=== PATIENT | male | born 1990 | race Hispanic/Latino ===

== ENCOUNTER 2019-11-14 18:37 | Emergency (ER) | payer BC, SELFPAY ==
[2019-11-14 19:20] LABS: #Monocytes 0.7 thou/uL (0.11-0.59); #Neutrophils 12.5 thou/uL (1.40-6.50); %Basophils 0.2 % (0.0-1.0); %Eosinophils 0.1 % (0.0-10.0); %Lymphocytes 12.9 % (21.0-51.0); %Monocytes 4.5 % (0.0-10.0); %Neutrophils 82.4 % (42.0-75.0); Hemoglobin 15.9 g/dL (14.0-18.0); Mean Corpuscular HGB CONC 33.1 g/dL (32.0-36.0); Mean Corpuscular Hemoglobin 33.1 pg (27.0-31.0); Mean Platelet Volume 7.3 fL (7.4-10.4); Platelet Count 299 thou/uL (130-400); RBC Distribution Width 12.1 % (11.5-14.5); Red Blood Cell (RBC) Count 4.79 mill/uL (4.70-6.10); White Blood Cell (WBC) Count 15.2 thou/uL (4.8-10.8)
[2019-11-14 19:42] LABS: Acetaminophen Less than 6.0 mcg/mL (10.0-30.0); Alcohol Less than 10 mg/dL (Less than 10); Salicylate Less than 8.0 mg/dL (15.0-30.0)
[2019-11-14 19:43] LABS: ALT (SGPT) 17 U/L (8-55); AST (SGOT) 13 U/L (5-34); Albumin 4.9 g/dL (3.5-5.0); Alkaline Phosphatase 84 U/L (40-110); Anion Gap 14 mmol/L (10-20); BUN (Urea Nitrogen) 8 mg/dL (8.9-20.6); Bilirubin, Total 0.5 mg/dL (0.2-1.2); CK (CPK) 94 U/L (30-200); Calc. Creatinine Clearance 0 mL/min (70-130); Calcium 9.6 mg/dL (7.8-10.44); Carbon Dioxide 23 mmol/L (22-29); Chloride 103 mmol/L (98-107); Estimated GFR-MDRD Greater than 90; Globulin 2.5 g/dL (2.4-3.5); Glucose 110 mg/dL (70-105); Potassium 3.8 mmol/L (3.5-5.1); Protein, Total 7.4 g/dL (6.0-8.3); Sodium 136 mmol/L (136-145)
[2019-11-14 19:56] LABS: Bilirubin Negative (Negative); Blood, Urine Negative (Negative); Clarity Clear (Clear); Glucose, Urine (Dipstick) Normal (Negative); Leukocyte Negative Leu/uL (Negative); Nitrite Negative (Negative); Protein, Urine (Dipstick) Negative (Neg-Trace); Urobilinogen Normal mg/dL (Less than 2)
[2019-11-14 20:10] LABS: Amphetamine Detected (NotDetected); Barbiturates Screen Not Detected (NotDetected); Benzodiazepine Screen Detected (NotDetected); Cocaine Metabolite Screen Not Detected (NotDetected); Medtox Control Line Valid? VALID (VALID); Medtox Reader # READER 1; Methadone Not Detected (NotDetected); Methamphetamine Not Detected (NotDetected); Opiate Screen Not Detected (NotDetected); Oxycodone Screen Not Detected (NotDetected); Phencyclidine (PCP) Not Detected (NotDetected); THC/Cannabinoid Screen Detected (NotDetected); Tricyclic Screen Not Detected (NotDetected)
[2019-11-14] MEDS ORDERED: Lorazepam 2 MG/ML VIAL ONE (22:19)
[2019-11-15] MEDS ORDERED: hydrOXYzine 25 MG TAB ONE (10:02)
[2019-11-15] MEDS ORDERED: Ziprasidone 20 MG CAP ONE (11:55)
[2019-11-15] MEDS ORDERED: Lorazepam 2 MG/ML VIAL ONE (14:52)
[2019-11-15] MEDS ORDERED: Haloperidol Lactate 5 MG/ML VIAL ONE (15:09)
--- NOTE | 2019-11-15 17:29 | CT ---
CT OF BRAIN WITHOUT CONTRAST: 11/15/19 COMPARISON: None. HISTORY: Altered mental status with possible drug overdose. TECHNIQUE: Multiple contiguous axial images were obtained in a CT of the brain without contrast. FINDINGS: The brain is normal in morphology and attenuation without focal lesions or confluent areas of infarct ion. There is no evidence of hydrocephalus, intracranial hemorrhage or extra-axial fluid collections. The calvarium and overlying soft tissues are unremarkable. The visualized paranasal sinuses and masto id air cells are well aerated. IMPRESSION: No evidence of acute intracranial abnormality. POS: CET
== END 2019-11-15 20:02 | disposition home or self-care (01) ==
LOC: ERS 18:37
DX: F43.20 Adjustment disorder, unspecified (principal); F13.10 Sedative, hypnotic or anxiolytic abuse, uncomplicated
CPT/HCPCS: 36415; 70450; 80053; 80306; 80307; 81003; 82550; 85025; 93005; 96361; 96372; 96374; J1630; J2060

== ENCOUNTER 2019-11-16 13:16 | Inpatient (IN) | payer SELFPAY ==
[2019-11-16] MEDS ORDERED: Lorazepam 2 MG/ML VIAL ONE ×3 (13:53→18:14)
[2019-11-16 13:59] LABS: #Basophils 0.1 thou/uL (0.0-0.2); #Lymphocytes 2.4 thou/uL (1.20-3.40); #Monocytes 0.9 thou/uL (0.11-0.59); #Neutrophils 14.7 thou/uL (1.40-6.50); %Basophils 0.4 % (0.0-1.0); %Eosinophils 0.2 % (0.0-10.0); %Lymphocytes 13.2 % (21.0-51.0); %Monocytes 5.2 % (0.0-10.0); Hemoglobin 17.3 g/dL (14.0-18.0); Mean Corpuscular HGB CONC 33.3 g/dL (32.0-36.0); Mean Corpuscular Hemoglobin 33.5 pg (27.0-31.0); Mean Platelet Volume 7.8 fL (7.4-10.4); Platelet Count 356 thou/uL (130-400); RBC Distribution Width 12.1 % (11.5-14.5); Red Blood Cell (RBC) Count 5.16 mill/uL (4.70-6.10); White Blood Cell (WBC) Count 18.2 thou/uL (4.8-10.8)
[2019-11-16 14:21] LABS: ALT (SGPT) 31 U/L (8-55); AST (SGOT) 31 U/L (5-34); Albumin 5.5 g/dL (3.5-5.0); Alkaline Phosphatase 100 U/L (40-110); Anion Gap 27 mmol/L (10-20); BUN (Urea Nitrogen) 13 mg/dL (8.9-20.6); Bilirubin, Total 0.6 mg/dL (0.2-1.2); CK (CPK) 985 U/L (30-200); Calc. Creatinine Clearance 0 mL/min (70-130); Calcium 10.6 mg/dL (7.8-10.44); Carbon Dioxide 15 mmol/L (22-29); Chloride 107 mmol/L (98-107); Estimated GFR-MDRD 61; Globulin 3.2 g/dL (2.4-3.5); Glucose 137 mg/dL (70-105); Potassium 4.9 mmol/L (3.5-5.1); Protein, Total 8.7 g/dL (6.0-8.3); Sodium 144 mmol/L (136-145)
[2019-11-16 15:31] LABS: Acetaminophen Less than 6.0 mcg/mL (10.0-30.0); Alcohol Less than 10 mg/dL (Less than 10); Salicylate Less than 8.0 mg/dL (15.0-30.0)
[2019-11-16 15:53] LABS: Bacteria/HPF None Seen HPF (None Seen); Bilirubin Negative (Negative); Blood, Urine Negative (Negative); Clarity Clear (Clear); Glucose, Urine (Dipstick) Normal (Negative); Leukocyte Negative Leu/uL (Negative); Nitrite Negative (Negative); Protein, Urine (Dipstick) 30 mg/dL (Neg-Trace); RBC/HPF 0-3 HPF (0-3); Squamous Epithelial 0-3 HPF (0-3); Urobilinogen Normal mg/dL (Less than 2)
[2019-11-16 16:00] LABS: Amphetamine Detected (NotDetected); Barbiturates Screen Not Detected (NotDetected); Benzodiazepine Screen Detected (NotDetected); Cocaine Metabolite Screen Not Detected (NotDetected); Medtox Control Line Valid? VALID (VALID); Medtox Reader # READER 1; Methadone Not Detected (NotDetected); Methamphetamine Not Detected (NotDetected); Opiate Screen Not Detected (NotDetected); Oxycodone Screen Not Detected (NotDetected); Phencyclidine (PCP) Not Detected (NotDetected); THC/Cannabinoid Screen Detected (NotDetected); Tricyclic Screen Not Detected (NotDetected)
[2019-11-16] MEDS ORDERED: Ondansetron ODT 4 MG TAB SL PRN (19:55)
[2019-11-16] MEDS ORDERED: Acetaminophen 325 MG TAB PO PRN (19:55)
[2019-11-16] MEDS ORDERED: Ondansetron PF 4 MG/2 ML Vial IVP PRN ×2 (19:55→21:46)
[2019-11-16] MEDS ORDERED: Lorazepam 2 MG/ML VIAL SLOW IVP SCH (20:00)
[2019-11-16 20:15] VITALS: BMI 30.1
[2019-11-16] MEDS ORDERED: Lorazepam 2 MG/ML VIAL SLOW IVP PRN (21:20)
[2019-11-16] MEDS ORDERED: Sodium Chloride 0.9% 1,000 ML IV SCH (21:30)
[2019-11-16] MEDS ORDERED: cloNIDine 0.1 MG TAB PO PRN (21:46)
[2019-11-16] MEDS ORDERED: Acetaminophen 500 MG TAB PO PRN (21:46)
[2019-11-16] MEDS ORDERED: Ondansetron ODT 4 MG TAB PO PRN (21:46)
[2019-11-16] MEDS: Lorazepam 2 MG/ML VIAL SLOW IVP SCH (21:55)
[2019-11-16] MEDS: Sodium Chloride 0.9% 1,000 ML IV SCH (21:56)
[2019-11-16] MEDS: Ketorolac Tromethamine 30 MG/ML VIAL IVP SCH (23:34)
--- NOTE | 2019-11-17 00:37 | HP ---
PRIMARY CARE PROVIDER: Hoang Ku. CHIEF COMPLAINT: Altered mental status, question of seizure. HISTORY OF PRESENT ILLNESS: This is a 29-year-old male, who initially presented to [facility] Emergency Department on 11/14/2018, for altered mental status, difficulty ambulating and seizure-like activity. The patient was treated with multiple medications to include Zyprexa, trazodone, Risperdal, Haldol, Ativan, Geodon, hydroxyzine, intravenous normal saline and transdermal nicotine during that 11/14/2019 evaluation. The patient states that he developed confusion, difficulty walking, and rigidity while working at his place of employment. The patient admits to daily marijuana use as well as methamphetamines and was attempting to discontinue the use of these drugs in preparation for seeking new employment. The patient states he was unable to complete his regular job duties, acting confused, staring blankly with some tongue movements and acting erratic. The patient underwent extensive evaluation on 11/14/[address] of the brain showing no acute process. The patient received the medications described previously and was discharged home with plans for [facility] evaluation on 11/16/2019. The father who accompanies his son states they went to [facility] for followup; however patient began acting confused, was rigid, sweating and appeared to have seizure-like activity. The patient was also noting visual hallucinations. The [facility] staff recommended the patient seek medical attention in the emergency room at which point the patient presented for 2nd evaluation on 11/16/2019. The patient underwent CT imaging of the brain showing no acute process and metabolic screening, which showed evidence of acute kidney injury as well as rhabdomyolysis. Urine drug screen was positive for amphetamines, benzodiazepines and cannabinoids. The patient received IV fluids in addition to Ativan 3 mg total and was transferred to the Hospitalist Service for evaluation. PAST MEDICAL HISTORY: 1. Polysubstance abuse. 2. Anxiety/depression. PAST SURGICAL HISTORY: Reviewed and negative. CURRENT MEDICATION: Ativan 0.5 mg p.o. q.8 hours p.r.n. ALLERGIES: NO KNOWN DRUG ALLERGIES. FAMILY HISTORY: No inheritable diseases per patient report. SOCIAL HISTORY: He smokes up to a quarter pack of cigarettes daily. Daily marijuana use. Positive benzodiazepine use. Resides in [place], [place]. Accompanied by his parents in the hospital. REVIEW OF SYSTEMS: CONSTITUTIONAL: Negative for weight loss or gain, ability to conduct usual activities. SKIN: Negative for rash, itching. EYES: Negative for double vision, pain. ENT/MOUTH: Negative for nose bleeding, neck stiffness, pain, tenderness. CARDIOVASCULAR: Negative for palpitations, dyspnea on exertion, orthopnea. RESPIRATORY: Negative for shortness of breath, wheezing, cough, hemoptysis, fever or night sweats. GASTROINTESTINAL: Negative for poor appetite, abdominal pain, heartburn, nausea, vomiting, constipation, or diarrhea. GENITOURINARY: Negative for urgency, frequency, dysuria, nocturia. MUSCULOSKELETAL: Negative for pain, swelling. NEUROLOGIC/PSYCHIATRIC: Negative for anxiety, depression. ALLERGY/IMMUNOLOGIC: Negative for skin rash, bleeding tendency. Otherwise negative except as stated per HPI. PHYSICAL EXAMINATION: VITAL SIGNS: On admission, blood pressure 135/106, pulse 136, respiratory rate 42, temperature 102.8 degrees Fahrenheit rectally. GENERAL APPEARANCE: This is a 29-year-old male, sitting in the hospital bed, alert responds to questions by nodding and stating several word sentences in mild distress. HEENT: Pupils are equal, round, reactive to light and accommodation. Extraocular muscles are intact. No scleral icterus. Mild conjunctival injection. Nares patent. OP is clear. Oral mucosa moist. Tongue fasciculations noted. NECK: Supple. No cervical adenopathy. No thyromegaly. No carotid bruits. No JVD appreciated. Cervical spine with full active and passive range of motion. No meningeal signs noted. CHEST: Lungs are clear to auscultation bilaterally. CARDIOVASCULAR: S1-S2 with tachycardia. ABDOMEN: Rounded, soft, nontender, and nondistended. Bowel sounds are positive in all 4 quadrants. There is no hepatosplenomegaly. No abdominal bruits, no rebound or guarding appreciated. EXTREMITIES: Warm and dry with fair turgor. No asymmetric edema appreciated. Pulses palpable distally at the dorsalis pedis, posterior tibial, and popliteal arteries bilaterally. Capillary refill less than 2 seconds. NEUROLOGIC: Staring blankly intermittently. Tongue fasciculations noted. Intermittent rigidity, hyperreflexia. PERTINENT LABORATORY AND X-RAY FINDINGS: Sodium 144, potassium 4.9, chloride 107, CO2 of 15, BUN 13, creatinine 1.36, estimated GFR of 61, glucose 137, calcium 10.6. LFTs within normal limits. Total CK of 985. Albumin 5.5. TSH 1.26. CBC showed a white blood cell count of 18.2, hemoglobin 17, hematocrit 52, MCV 100, platelet count 356 with 81% neutrophils. Urinalysis positive for protein and 4-6 wbc's per high-power field. Urine drug screen dated 11/16/2019 positive for amphetamines, benzodiazepines and cannabinoids. Plasma alcohol level less than 10. Influenza A and B antigen dated 11/16/[address] of the brain without contrast dated 11/15/2019 showed no acute intracranial process. Telemetry monitoring shows sinus tachycardia with heart rates in the low 110s. ASSESSMENT AND PLAN: 1. Neuroleptic malignant syndrome. The patient will be admitted to the intermediate care unit. We will continue Ativan 1 mg IV q.2 hours scheduled. Continue IV fluids with normal saline 125 mL/hour. Continue general supportive management. Consider the use of dantrolene, if temperature remains elevated. Cooling ice packs as needed. Avoid all other antipsychotic medications. 2. Rhabdomyolysis with acute kidney injury. We will continue IV fluids as outlined previously. Avoid nephrotoxic agents. Limit contrast exposure. Total CK in the a.m. 3. Polysubstance abuse. [facility] evaluation for outpatient followup when clinically stabilizing. 4. Tobacco abuse. We will offer smoking cessation resources prior to discharge. 5. Prophylaxis. Sequential compression devices while in bed. Pepcid 20 mg IV q.12 hours. [facility] evaluation when clinically stabilizing. CODE STATUS: Full. Surrogate medical decision maker is the patient's father. Job ID: [id number]
[2019-11-17] MEDS: Lorazepam 2 MG/ML VIAL SLOW IVP SCH ×12 (01:35→22:48)
[2019-11-17 04:07] LABS: Eosinophils 2 % (0-10); Hemoglobin 14.2 g/dL (14.0-18.0); Lymphocytes 24 % (21-51); MDiff Complete? YES; Mean Corpuscular HGB CONC 33.4 g/dL (32.0-36.0); Mean Corpuscular Hemoglobin 33.4 pg (27.0-31.0); Mean Platelet Volume 7.6 fL (7.4-10.4); Monocytes 4 % (0-10); Neutrophil 66 % (42-75); Platelet Count 253 thou/uL (130-400); Platelet Morphology Comment Appears Adequate; Reactive Lymphocytes 4 % (0-10); Red Blood Cell (RBC) Count 4.25 mill/uL (4.70-6.10)
[2019-11-17 04:16] LABS: ALT (SGPT) 29 U/L (8-55); AST (SGOT) 37 U/L (5-34); Albumin 4.3 g/dL (3.5-5.0); Alkaline Phosphatase 77 U/L (40-110); Anion Gap 12 mmol/L (10-20); BUN (Urea Nitrogen) 11 mg/dL (8.9-20.6); Bilirubin, Total 0.9 mg/dL (0.2-1.2); CK (CPK) 1356 U/L (30-200); Calc. Creatinine Clearance 187 mL/min (70-130); Calcium 8.8 mg/dL (7.8-10.44); Carbon Dioxide 22 mmol/L (22-29); Chloride 111 mmol/L (98-107); Estimated GFR-MDRD Greater than 90; Globulin 2.4 g/dL (2.4-3.5); Glucose 97 mg/dL (70-105); Potassium 3.8 mmol/L (3.5-5.1); Protein, Total 6.7 g/dL (6.0-8.3); Sodium 141 mmol/L (136-145)
[2019-11-17] MEDS: Ketorolac Tromethamine 30 MG/ML VIAL IVP SCH ×3 (05:32→17:27)
[2019-11-17] MEDS: Sodium Chloride 0.9% 1,000 ML IV SCH ×3 (05:36→22:41)
[2019-11-17] MEDS: Famotidine/PF 20 mg/2ml Vial SLOW IVP SCH ×2 (10:26→21:00)
--- NOTE | 2019-11-17 13:13 | PDOC.HOSPP ---
- Subjective Encounter Date: 11/17/19 Encounter Time: 13:11 Subjective: Mr. Aguirre was seen today in follow-up. He appears back to his baseline. Family is at the bedside. - Objective Vital Signs & Weight: Vital Signs (12 hours) Temp Pulse Ox 11/17/19 09:00 98.5 F 11/17/19 08:00 99 11/17/19 03:00 98.4 F 11/17/19 02:46 97 Weight Weight 204 lb 2 oz Most Recent Monitor Data Heart Rate from ECG 103 NIBP 108/86 NIBP BP-Mean 93 Respiration from ECG 20 SpO2 100 I&O: 11/16/19 11/17/19 11/18/19 06:59 06:59 06:59 Intake Total 717 Output Total 400 200 Balance 317 -200 Result Diagrams: 11/17/19 03:38 11/17/19 03:38 Hospitalist ROS - Medication Medications: Active Medications Generic Name Dose Route Start Last Admin Trade Name Freq PRN Reason Stop Dose Admin Famotidine 20 mg 11/17/19 09:00 11/17/19 10:26 Pepcid SLOW IVP 20 mg Q12HR JHON Administration Sodium Chloride 1,000 mls @ 125 mls/hr 11/16/19 21:46 11/17/19 05:36 Normal Saline 0.9% IV 1,000 mls .Q8H JHON Administration Ketorolac Tromethamine 15 mg 11/16/19 23:59 11/17/19 11:52 Toradol IVP 11/21/19 23:59 15 mg Q6HR JHON Administration Lorazepam 1 mg 11/16/19 22:00 11/17/19 11:53 Ativan SLOW IVP Not Given Q2HR JHON - Exam Eye: PERRL Heart: RRR, no gallops, no rubs, normal peripheral pulses, II/IV Respiratory: CTAB, no wheezes, no rales, no ronchi Gastrointestinal: soft, non-tender, non-distended, normal bowel sounds, no palpable masses, no hepatomegaly Extremities: no cyanosis, no edema Hosp A/P (1) Neuroleptic malignant syndrome Code(s): G21.0 - MALIGNANT NEUROLEPTIC SYNDROME Status: Acute (2) Rhabdomyolysis Code(s): M62.82 - RHABDOMYOLYSIS Status: Acute (3) Altered mental status Code(s): R41.82 - ALTERED MENTAL STATUS, UNSPECIFIED Status: Acute (4) Polysubstance abuse Code(s): F19.10 - OTHER PSYCHOACTIVE SUBSTANCE ABUSE, UNCOMPLICATED Status: Acute - Plan * Neuroleptic Malignant Syndrome- improved * Rhabdomyolysis- continue IV hydration, and will continue to trend to CK levels * Murmur noted on exam- will check an Echo * I suspect the original altered mental status was due to substance abuse- will check an MRI to rule out structural Abnormality * He can be moved out of the ICU
--- NOTE | 2019-11-17 16:52 | CON ---
DATE OF CONSULTATION: 11/17/2019 REASON FOR CONSULTATION: ICU management. HISTORY OF PRESENT ILLNESS: This is a 29-year-old male, who presented to the emergency room yesterday with rigors versus seizure-type activity. He had elevated CK. He also had fever, so it was assumed that he could have neuroleptic malignant syndrome. He does have a history of schizophrenia, to take several antipsychotic medications. PAST MEDICAL HISTORY: 1. Schizophrenia. 2. Substance abuse. 3. Anxiety/depression. PAST SURGICAL HISTORY: None. MEDICATIONS: Prior to admission; 1. Zyprexa. 2. Trazodone. 3. Risperidone. 4. Haldol. 5. Ativan. 6. Geodon. 7. Hydroxyzine. 8. Transdermal nicotine. ALLERGIES: NONE. FAMILY MEDICAL HISTORY: Unremarkable. SOCIAL HISTORY: He smokes a quarter pack of cigarettes a day. He uses marijuana. REVIEW OF SYSTEMS: Remarkable for body aches. Rigor-type activity in his extremities, otherwise negative. PHYSICAL EXAMINATION: VITAL SIGNS: Temperature 98.4, pulse 75, blood pressure 137/78, and O2 saturation 99%. GENERAL: He is awake, alert, and in no distress. HEENT: Unremarkable. NECK: No adenopathy or JVD. LUNGS: Clear anteriorly. CARDIAC: S1 and S2. Regular. ABDOMEN: Soft and nontender. EXTREMITIES: No clubbing, cyanosis, or edema. NEUROLOGIC: Nonfocal. LABORATORY DATA: Sodium 141, potassium 3.8, chloride 111, CO2 of 22, BUN 11, creatinine 0.7, and glucose 97. CPK is 1356. White blood cell count 13, hematocrit 42.6, and platelet count 253. I do not see a prolactin level. ASSESSMENT: 1. Neuroleptic malignant syndrome versus seizure activity versus rhabdomyolysis. The elevated CK could be seen with any of those three situations. 2. Substance abuse. PLAN: IV fluids, stop the antipsychotics and monitor CK levels closely. The patient apparently has transfer orders to the [facility]. Agree with current management. No further recommendations at this time. Job ID: [id number]
[2019-11-18] MEDS: Ketorolac Tromethamine 30 MG/ML VIAL IVP SCH ×4 (00:23→18:33)
[2019-11-18] MEDS: Lorazepam 2 MG/ML VIAL SLOW IVP SCH ×5 (00:26→09:01)
[2019-11-18 04:05] LABS: Anion Gap 9 mmol/L (10-20); BUN (Urea Nitrogen) 10 mg/dL (8.9-20.6); CK (CPK) 663 U/L (30-200); Calc. Creatinine Clearance 184 mL/min (70-130); Calcium 8.4 mg/dL (7.8-10.44); Carbon Dioxide 26 mmol/L (22-29); Chloride 111 mmol/L (98-107); Estimated GFR-MDRD Greater than 90; Glucose 101 mg/dL (70-105); Potassium 4.1 mmol/L (3.5-5.1); Sodium 142 mmol/L (136-145)
[2019-11-18] MEDS: Sodium Chloride 0.9% 1,000 ML IV SCH ×2 (05:57→15:33)
--- NOTE | 2019-11-18 09:03 | PDOC.HOSPP ---
- Subjective Encounter Date: 11/18/19 Encounter Time: 09:00 Subjective: Mr. Aguirre was seen today in follow-up of rhabdomyolysis and Neuroleptic Malignant Syndrome. He does not have any complaints this morning. He denies any seizure like activity, and none reported by the staff. - Objective Vital Signs & Weight: Vital Signs (12 hours) Temp Pulse Ox 11/18/19 07:23 98 11/18/19 07:08 98.8 F 11/18/19 06:44 96 11/18/19 04:00 98.4 F 11/17/19 23:35 99.2 F Weight Weight 204 lb 4.8 oz Most Recent Monitor Data Heart Rate from ECG 95 NIBP 132/91 NIBP BP-Mean 104 Respiration from ECG 6 SpO2 96 I&O: 11/17/19 11/18/19 11/19/19 06:59 06:59 06:59 Intake Total 717 3193 Output Total 400 1450 575 Balance 317 1743 -575 Result Diagrams: 11/17/19 03:38 11/18/19 03:10 Hospitalist ROS - Medication Medications: Active Medications Generic Name Dose Route Start Last Admin Trade Name Freq PRN Reason Stop Dose Admin Famotidine 20 mg 11/17/19 09:00 11/17/19 21:00 Pepcid SLOW IVP 20 mg Q12HR JHON Administration Sodium Chloride 1,000 mls @ 125 mls/hr 11/16/19 21:46 11/18/19 05:57 Normal Saline 0.9% IV 1,000 mls .Q8H JHON Administration Ketorolac Tromethamine 15 mg 11/16/19 23:59 11/18/19 05:59 Toradol IVP 11/21/19 23:59 15 mg Q6HR JHON Administration Lorazepam 1 mg 11/16/19 22:00 11/18/19 06:02 Ativan SLOW IVP Not Given Q2HR JHON - Exam Eye: PERRL Heart: RRR, no murmur, no gallops, no rubs (no audible murmur today), normal peripheral pulses Respiratory: CTAB, no wheezes, no rales, no ronchi, normal chest expansion, no tachypnea, normal percussion Gastrointestinal: soft, non-tender, non-distended, normal bowel sounds, no palpable masses, no hepatomegaly Extremities: no cyanosis, no clubbing, no edema Hosp A/P (1) Neuroleptic malignant syndrome Code(s): G21.0 - MALIGNANT NEUROLEPTIC SYNDROME Status: Acute (2) Rhabdomyolysis Code(s): M62.82 - RHABDOMYOLYSIS Status: Acute (3) Altered mental status Code(s): R41.82 - ALTERED MENTAL STATUS, UNSPECIFIED Status: Acute (4) Polysubstance abuse Code(s): F19.10 - OTHER PSYCHOACTIVE SUBSTANCE ABUSE, UNCOMPLICATED Status: Acute - Plan * Neuroleptic Malignant Syndrome-resolved * Rhabdomyolysis- improving- his CK is now trending down- continue IV fluids * Altered mental status- the initial presentation was likely from substance abuse- however- will follow- up with MRI and Echo ( due to elevated WBC count and murmur- heard yesterday) * He can be moved out of the [facility]
[2019-11-18] MEDS: Famotidine/PF 20 mg/2ml Vial SLOW IVP SCH ×2 (09:05→20:35)
[2019-11-18] MEDS: Lorazepam 2 MG/ML VIAL SLOW IVP PRN ×2 (09:09→19:36)
--- NOTE | 2019-11-18 11:41 | MRI ---
MRI BRAIN WITHOUT CONTRAST: INDICATIONS: Altered mental status. Seizure. FINDINGS: Motion artifact degrades some of the sequences. Ventricles have normal size and position. No evidence of restricted diffusion. There is no evidence o f mass or edema. No white matter abnormality identified. Intracranial internal carotid arteries and c erebral arteries exhibit expected flow voids. Dural venous sinuses are patent. Small mucus retention cyst, measuring approximately 1.0 cm, in the floor of the right maxillary antru m. Mild mucosal edema in the right mastoid air cells. IMPRESSION: Unremarkable MRI of brain. POS: NAGA
--- NOTE | 2019-11-18 11:54 | PRG ---
DATE OF SERVICE: 11/18/2019 SUBJECTIVE: He feels better, had no acute complaints. OBJECTIVE: VITAL SIGNS: Temperature is 98.8, pulse 97, blood pressure 139/90, O2 saturation 98%. HEENT: Unremarkable. NECK: No adenopathy or JVD. LUNGS: Clear. CARDIAC: S1, S2 regular. ABDOMEN: Soft. EXTREMITIES: No edema. LABORATORY DATA: His CPK 663, sodium 142, potassium 4.1, chloride 111, CO2 of 26, BUN 10, creatinine 0.7, glucose 101. ASSESSMENT: Probable mild neuroleptic malignant syndrome. PLAN: He is being transferred to the medical floor. He will continue IV fluids. No further recommendations from a critical care standpoint. We will sign off. Job ID: [id number]
[2019-11-19] MEDS: Ketorolac Tromethamine 30 MG/ML VIAL IVP SCH ×3 (01:26→12:10)
[2019-11-19 05:24] LABS: #Eosinphils 0.2 thou/uL (0.0-0.7); #Lymphocytes 2.6 thou/uL (1.20-3.40); %Basophils 0.2 % (0.0-1.0); %Eosinophils 1.8 % (0.0-10.0); %Lymphocytes 22.2 % (21.0-51.0); %Monocytes 8.4 % (0.0-10.0); %Neutrophils 67.4 % (42.0-75.0); Hemoglobin 14.2 g/dL (14.0-18.0); Mean Corpuscular HGB CONC 33.2 g/dL (32.0-36.0); Mean Corpuscular Hemoglobin 33.8 pg (27.0-31.0); Mean Platelet Volume 7.7 fL (7.4-10.4); Platelet Count 233 thou/uL (130-400); Red Blood Cell (RBC) Count 4.21 mill/uL (4.70-6.10); White Blood Cell (WBC) Count 11.9 thou/uL (4.8-10.8)
[2019-11-19 05:49] LABS: Anion Gap 11 mmol/L (10-20); BUN (Urea Nitrogen) 11 mg/dL (8.9-20.6); CK (CPK) 218 U/L (30-200); Calc. Creatinine Clearance 180 mL/min (70-130); Calcium 8.8 mg/dL (7.8-10.44); Carbon Dioxide 25 mmol/L (22-29); Chloride 108 mmol/L (98-107); Estimated GFR-MDRD Greater than 90; Glucose 102 mg/dL (70-105); Potassium 3.5 mmol/L (3.5-5.1); Sodium 140 mmol/L (136-145)
[2019-11-19] MEDS: Famotidine/PF 20 mg/2ml Vial SLOW IVP SCH (08:41)
[2019-11-19 09:36] LABS: Anion Gap 12 mmol/L (10-20); BUN (Urea Nitrogen) 10 mg/dL (8.9-20.6); Calc. Creatinine Clearance 190 mL/min (70-130); Calcium 9.1 mg/dL (7.8-10.44); Carbon Dioxide 26 mmol/L (22-29); Chloride 108 mmol/L (98-107); Estimated GFR-MDRD Greater than 90; Glucose 112 mg/dL (70-105); Potassium 3.7 mmol/L (3.5-5.1); Sodium 142 mmol/L (136-145)
[2019-11-19] MEDS: Lorazepam 2 MG/ML VIAL SLOW IVP PRN (12:11)
[2019-11-19 12:31] VITALS: BP 162/94; TEMP 99.8
--- NOTE | 2019-11-19 15:06 | PDOC.HOSPP ---
- Subjective Encounter Date: 11/19/19 Encounter Time: 15:04 Subjective: Mr. Aguirre was seen today in follow-up of Neuroleptic Malignant Syndrome. He does not have any complaints. - Objective Vital Signs & Weight: Vital Signs (12 hours) Temp Pulse Resp BP Pulse Ox 11/19/19 12:00 99.8 F H 75 16 162/94 H 98 11/19/19 08:00 98.6 F 82 12 150/88 H 96 11/19/19 03:49 98.3 F 73 16 135/84 98 Weight Weight 204 lb 4.8 oz Most Recent Monitor Data Heart Rate from ECG 97 NIBP 139/90 NIBP BP-Mean 106 Respiration from ECG 19 SpO2 98 I&O: 11/18/19 11/19/19 11/20/19 06:59 06:59 06:59 Intake Total 3193 Output Total 1450 1675 Balance 1743 -1675 Result Diagrams: 11/19/19 05:09 11/19/19 09:01 Hospitalist ROS - Medication Medications: Active Medications Generic Name Dose Route Start Last Admin Trade Name Freq PRN Reason Stop Dose Admin Famotidine 20 mg 11/17/19 09:00 11/19/19 08:41 Pepcid SLOW IVP 20 mg Q12HR JHON Administration Ketorolac Tromethamine 15 mg 11/16/19 23:59 11/19/19 12:10 Toradol IVP 11/21/19 23:59 15 mg Q6HR JHON Administration Lorazepam 1 mg 11/18/19 09:01 11/19/19 12:11 Ativan SLOW IVP 1 mg Q2HR PRN Administration Anxiety/Agitation - Exam Eye: PERRL, anicteric sclera Heart: RRR, no murmur, no gallops, no rubs, normal peripheral pulses Respiratory: CTAB, no wheezes, no rales, no ronchi, normal chest expansion, no tachypnea, normal percussion Gastrointestinal: soft, non-tender, non-distended, normal bowel sounds, no palpable masses, no hepatomegaly Extremities: no cyanosis, no edema Hosp A/P (1) Neuroleptic malignant syndrome Code(s): G21.0 - MALIGNANT NEUROLEPTIC SYNDROME Status: Acute (2) Rhabdomyolysis Code(s): M62.82 - RHABDOMYOLYSIS Status: Acute (3) Altered mental status Code(s): R41.82 - ALTERED MENTAL STATUS, UNSPECIFIED Status: Acute (4) Polysubstance abuse Code(s): F19.10 - OTHER PSYCHOACTIVE SUBSTANCE ABUSE, UNCOMPLICATED Status: Acute - Plan * Neuroleptic Malignant Syndrome-resolved * Stable for discharge home.
--- NOTE | 2019-11-20 01:51 | PQF ---
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 Clinical indicators are provided on the bottom of this form for your review Can you please further clarify the etiology of Neuroleptic syndrome? Please check appropriate box(s): [X ] Polysubstance abuse [ ] LUIGI [X ] Rhabdomyolysis [ ] Neuroleptic syndrome of unknown etiology [ ] Other diagnosis please specify [ ] Unable to determine In addition, please specify: Present on Admission (POA): [X ] Yes [ ] No [ ] Unable to determine For continuity of documentation, please document condition throughout progress notes and discharge summary. Thank You. CLINICAL INDICATORS - SIGNS / SYMPTOMS / LABS -Consult pg1 11/17 Dr. Joel-He does have a history of schizophrenia, to take several antipsychotic medications - Hospitalist PN pg3 11/08 Dr. Nolen-Altered mental status the initial presentation was likely from substance abuse - H&P pg1 11/16 Dr. Lara- Urine drug screen was positive for amphetamines, benzodiazepines and cannabinoids - H&P pg1 11/16 Dr. Lara- patient was also noting visual hallucinations RISK FACTORS Polysubstance abuse H&P Dr. Lara Anxiety H&P Dr. Lara Depression H&P Dr. Lara Schizophrenia Consult Dr. Joel Rhabdomyolysis- PN 11/19 pg.3 Acute kidney injury- PN 11/19 pg.3 TREATMENTS: IV Ativan 2 mg - MAR IV Fluids MAR Brain MRI MRI 11/18 TTE Echocardiogram 11/19 (This form is maintained as a part of the permanent medical record) 2014 [employer] All Rights Reserved [email or web address]
--- NOTE | 2019-11-20 01:55 | DIS ---
DATE OF ADMISSION: 11/16/2019 DATE OF DISCHARGE: 11/19/2019 DISCHARGE DISPOSITION: Home. DISCHARGE DIAGNOSES: 1. Neuroleptic malignant syndrome. 2. Substance abuse. 3. History of anxiety and depression. DISCHARGE MEDICATIONS: None. CODE STATUS: Full code. ALLERGIES: NO KNOWN DRUG ALLERGIES. PROCEDURES DONE DURING ADMISSION: The patient had an MRI of the brain, which was negative for any acute intracranial abnormalities. The patient had an echocardiogram in which the ejection fraction was estimated at 55% to 60%. There was trace mitral regurgitation, as well as tricuspid regurgitation. HOSPITAL COURSE: Mr. Aguirre is a pleasant 29-year-old gentleman, who presented to the emergency room after receiving multiple medications including Zyprexa, trazodone, Risperdal, and Haldol in the ER, and was found to be having difficulty walking. He was rigid and confused, and also had a temperature of 102.8. It is felt that he had neuroleptic malignant syndrome due to the antipsychotics he was given, likely in conjunction with polysubstance abuse as his urine drug screen was positive for amphetamines as well as cannabinoids. The patient was placed in the ICU on IV fluid, as well as Ativan as needed. It is also noted that the patient had an elevated serum creatine kinase and mild rhabdomyolysis. His renal function was monitored and remained normal during his hospital stay. An echocardiogram was done in the event that he could have endocarditis given he has history of evidence of substance abuse. This was negative, as well as the MRI. Once his CK began to trend down and he was back to his baseline status with normalization of his temperature as well as his vital signs, he was discharged home. He was counseled on the need to abstain from illicit drug use and he will also be following up with [facility] in 1 week, where he had previously gone before falling ill and also to establish a primary care physician in the area. Job ID: [id number]
== END 2019-11-19 16:15 | disposition home or self-care (01) | DRG 917 ==
LOC: ERS 13:16 → T4-A 19:50 → CCU 23:20 → IMCU/EMU 11-17 15:02 → SURG A 11-18 20:52
PROVIDERS: ADMIT Emergency Medicine; ATTEND Emergency Medicine
DX: T43.621A Poisoning by amphetamines, accidental (unintentional), initial encounter (principal); G21.0 Malignant neuroleptic syndrome; M62.82 Rhabdomyolysis; N17.9 Acute kidney failure, unspecified; T42.4X1A Poisoning by benzodiazepines, accidental (unintentional), initial encounter; T40.7X1A Poisoning by cannabis (derivatives), accidental (unintentional), initial encounter; F12.10 Cannabis abuse, uncomplicated; F13.10 Sedative, hypnotic or anxiolytic abuse, uncomplicated; F15.10 Other stimulant abuse, uncomplicated; F41.9 Anxiety disorder, unspecified; F32.9 Major depressive disorder, single episode, unspecified; F20.9 Schizophrenia, unspecified; F17.210 Nicotine dependence, cigarettes, uncomplicated; Z79.899 Other long term (current) drug therapy
CPT/HCPCS: 36415; 70551; 80048; 80053; 80306; 80307; 81003; 81015; 82550; 84443; 85007; 85025; 85027; 87040; 87086; 87804; 93306; 96361; 96374; 96376; J1885; J2060; S0028